=== PATIENT | male | born 1950 | race Caucasian/White ===

== ENCOUNTER → 2017-01-24 | Outpatient (CLI) | payer MEDICARE, BC ==
--- NOTE | 2017-01-24 10:29 | CR ---
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 There is no acute osseous abnormality, dislocation, or fracture identified. Bone mineralization and joint spaces appear normal.
== END ==
LOC: MW.CHORTHO 08:19
PROVIDERS: ATTEND Physician Assistant
DX: M25.511 Pain in right shoulder (principal); M19.011 Primary osteoarthritis, right shoulder
CPT/HCPCS: 73030-26-RT; 73030-RT; 99203

== ENCOUNTER → 2017-01-26 | Outpatient (CLI) | payer MEDICARE, BC ==
--- NOTE | 2017-01-26 16:10 | MR ---
EXAM DATE: 01/26/17 PATIENT'S AGE: 66 Patient: BRADY FLORES Facility: [place], [place] Site . Site : 1950 Study: MRI Shoulder Right [id number]/[id number] 10:56:11 AM Ordering Physician: Misael Vasquez Pa-C Final Report: HISTORY: Right shoulder pain after a fall. Technique: MRI right shoulder without contrast. Comparison: Radiographs 01/24/2017. Findings: Rotator cuff: Full-thickness tear involving the entire AP dimension of the supraspinatus tendon and anterior half of the infraspinatus tendon. Tear measures 3 cm in AP dimension. Tendon fibers are retracted medially, up to 4 cm from the greater tuberosity. Tendinosis of the residual infraspinatus tendon. Moderate subscapularis tendinosis with fraying of the superior margin of the tendon.. Teres minor tendon is intact. Rotator cuff muscle bulk and signal intensity are within normal limits. Acromioclavicular joint and coracoacromial arch: Moderate AC joint degenerative changes with moderate size inferior osteophytes. Type 2 acromial morphology. Acromiohumeral interval measures 6 mm. Coracoacromial ligament is thickened. Coracoclavicular ligament is intact. Biceps-labral complex: Long head biceps tendon is thickened with tendinosis and low-grade partial tearing. Tendon is partially subluxed onto the lesser tuberosity. Fraying of the superior labrum. Labrum below the level of the equator is intact. Glenohumeral joint: No focal cartilage defects. Small joint effusion. Inferior glenohumeral ligament is ill-defined with increased signal at the humeral attachment consistent with tear. Bones and soft tissues: No fracture. No marrow replacing process. Small subcortical cysts in the greater and lesser tuberosities. Small amount of fluid in the subacromial-subdeltoid bursa. Deltoid is intact. Impression: 1. Full-thickness rotator cuff tear including complete supraspinatus tendon tear and tear of the anterior half of the infraspinatus tendon. 4 cm medial tendon retraction. No muscle atrophy. 2. Subscapularis tendinosis with fraying of the superior tendon margin. 3. Long head biceps tendinosis and partial tearing. 4. Tear of the inferior glenohumeral ligament from the humeral attachment. 5. AC joint degenerative changes with inferior hypertrophy. Dictated by Jules Mora MD @ Jan 26 2017 12:20PM (Electronic Signature) Report Signed by Proxy and Original Signed Document filed in the Medical Record. [facility]
== END ==
LOC: MW.MRI 09:19
PROVIDERS: ATTEND Physician Assistant
DX: M25.511 Pain in right shoulder (principal); M75.121 Complete rotator cuff tear or rupture of right shoulder, not specified as traumatic; M75.21 Bicipital tendinitis, right shoulder; M19.011 Primary osteoarthritis, right shoulder
CPT/HCPCS: 73221-26-RT; 73221-RT

== ENCOUNTER → 2017-01-27 | Outpatient (CLI) | payer MEDICARE, BC | LOC: MW.CHORTHO 08:00 | PROVIDERS: ATTEND Physician Assistant | DX: M75.101 Unspecified rotator cuff tear or rupture of right shoulder, not specified as traumatic (principal) | CPT/HCPCS: G0463 ==

== ENCOUNTER 2022-10-29 06:32 | Day surgery (SDC) | payer MEDICARE, BC ==
[2022-10-29] MEDS ORDERED: Lactated Ringers 1,000 ML IV SCH ×2 (07:00→09:00)
[2022-10-29] MEDS ORDERED: Lidocaine 2% 5 ML SDV ONE (07:25)
[2022-10-29] MEDS ORDERED: Propofol 200 MG/20 ML SDV ONE ×2 (07:25→08:23)
[2022-10-29] MEDS ORDERED: fentaNYL 100 MCG/2 ML SDV ONE (07:26)
[2022-10-29 13:01] VITALS: BP 106/58; PULSE 55
== END 2022-10-29 09:45 | disposition home or self-care (01) ==
LOC: MW.SDS 06:32
PROVIDERS: ATTEND Surgery
DX: K29.50 Unspecified chronic gastritis without bleeding (principal); I10 Essential (primary) hypertension; D64.9 Anemia, unspecified; Z88.8 Allergy status to other drugs, medicaments and biological substances; Z79.899 Other long term (current) drug therapy; Z98.890 Other specified postprocedural states; Z79.82 Long term (current) use of aspirin
CPT/HCPCS: 43239; 45378; 88305; J2704; J3010; J7120; 00813

== ENCOUNTER 2024-02-06 06:31 | Day surgery (SDC) | payer MEDICARE, BC ==
[~2024-02-06 06:31] MED LIST: ceFAZolin 2 GM in Sodium Chloride 0.9% 50 ML IV ONE
[2024-02-06] MEDS ORDERED: Magnesium Sulfate (4.06 MEQ/ML) 5 GM/10 ML SDV ONE (06:56)
[2024-02-06] MEDS ORDERED: Water For Injection, Sterile 20 ML ONE ×2 (06:56→06:59)
[2024-02-06] MEDS ORDERED: ceFAZolin 1 GM Vial ONE ×2 (06:59→08:22)
[2024-02-06] MEDS ORDERED: Dexamethasone 4 MG/ML 5 ML MDV ONE (06:59)
[2024-02-06] MEDS ORDERED: Ondansetron 4 MG/2 ML SDV ONE (06:59)
[2024-02-06] MEDS ORDERED: dexmedeTOMIDine HCl 200 MCG/2 ML SDV ONE (06:59)
[2024-02-06] MEDS ORDERED: Lidocaine 2% 5 ML SDV ONE (06:59)
[2024-02-06] MEDS ORDERED: Ketorolac 30 MG/ML SDV ONE (06:59)
[2024-02-06] MEDS: Lactated Ringers 1,000 ML IV SCH (07:00)
[2024-02-06] MEDS ORDERED: propofoL 50 ML ONE ×2 (07:00→08:17)
[2024-02-06] MEDS ORDERED: Ropivacaine 0.5% 5 MG/ML 30 ML SDV ONE (07:16)
[2024-02-06] MEDS ORDERED: fentaNYL 100 MCG/2 ML SDV ONE (07:18)
[2024-02-06] MEDS ORDERED: Morphine 2 MG/ML SYRINGE IVPUSH PRN (07:25)
[2024-02-06] MEDS ORDERED: HYDROmorphone 1 MG/ML Syringe IVPUSH PRN (07:25)
[2024-02-06] MEDS ORDERED: Metoclopramide 10 MG/2 ML SDV IVPUSH PRN (07:25)
[2024-02-06] MEDS ORDERED: Naloxone 0.4 MG/ML SDV IVPUSH PRN (07:25)
[2024-02-06] MEDS ORDERED: Ondansetron 4 MG/2 ML SDV IVPUSH PRN (07:25)
[2024-02-06] MEDS ORDERED: fentaNYL 50 MCG/ML SDV IVPUSH PRN (07:25)
[2024-02-06] MEDS ORDERED: droPERidol 5 MG/2 ML SDV IVPUSH PRN (07:25)
[2024-02-06] MEDS ORDERED: Albuterol 0.083% 2.5 MG/3 ML Neb Soln NEB PRN (07:25)
[2024-02-06] MEDS ORDERED: Bupivacaine 0.5% 30 ML SDV ONE (07:27)
[2024-02-06] MEDS ORDERED: Acetaminophen/HYDROcodone 325-5 MG Tab PO PRN (09:22)
[2024-02-06] MEDS ORDERED: Morphine 4 MG/ML Syringe IVPUSH PRN (09:22)
[2024-02-06] MEDS ORDERED: Lactated Ringers 1,000 ML IV SCH (09:30)
[2024-02-06 12:43] VITALS: BP 130/79
[2024-02-06 12:44] VITALS: PULSE 61
== END 2024-02-06 11:45 | disposition home or self-care (01) ==
LOC: MW.SDS 06:31
PROVIDERS: ATTEND Surgery
DX: K40.90 Unilateral inguinal hernia, without obstruction or gangrene, not specified as recurrent (principal); D64.9 Anemia, unspecified; I10 Essential (primary) hypertension; H40.9 Unspecified glaucoma; K31.89 Other diseases of stomach and duodenum; M25.511 Pain in right shoulder; M75.101 Unspecified rotator cuff tear or rupture of right shoulder, not specified as traumatic; Z88.9 Allergy status to unspecified drugs, medicaments and biological substances; Z79.899 Other long term (current) drug therapy
CPT/HCPCS: 49505; 64488; J0131; J0665; J0690; J1100; J1885; J2704; J2795; J3010; J3475; J7120; J2405; J3490